=== PATIENT | female | born 2000 | race Two or more races ===

== ENCOUNTER 2024-08-28 22:21 | Emergency (ER) | payer OTHER, SELFPAY ==
[~2024-08-28] VITALS: Ht 170.2 cm; Wt 118.0 kg
[2024-08-28 23:21] VITALS: BP 135/97; PULSE 70; RESP 14; TEMP 99.1; O2SAT 98
[2024-08-29] MEDS: KETOROLAC TROMETH 60MG/2ML VIAL IM ONE (00:14)
[2024-08-29] MEDS: DexAMETHasone SOD PHOS 10MG/1ML VIAL INJ IM ONE (00:26)
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
[2024-08-29] MEDS ORDERED: METH4PAK PO (01:37)
[2024-08-29] MEDS ORDERED: TIZA4TAB9 PO (01:37)
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
== END 2024-08-29 01:50 | disposition home or self-care (01) ==
LOC: ER 22:21
DX: S33.5XXA Sprain of ligaments of lumbar spine, initial encounter (principal); Z79.899 Other long term (current) drug therapy; V89.2XXA Person injured in unspecified motor-vehicle accident, traffic, initial encounter; Y93.I9 Activity, other involving external motion; Y92.89 Other specified places as the place of occurrence of the external cause; Y99.8 Other external cause status
CPT/HCPCS: 72100; 96372; 99284; J1100; J1885